=== PATIENT | female | born 1935 | race Caucasian/White ===

== ENCOUNTER 2017-10-22 20:15 | Emergency (ER) | payer MEDICARE, OTHER ==
[~2017-10-22] VITALS: Ht 160 cm; Wt 85.0 kg
[~2017-10-22 20:15] MED LIST: ASPI-611 PO; CEPH500C5 PO; CLAR250T43 PO; DIAZ-351 PO; LISI-600 PO; MECL-111 PO; NITR100C6 PO; OMEP40CA37; PHEN-824 PO; VITA100C22
[2017-10-22 20:44] VITALS: BP 146/81
== END 2017-10-22 23:40 | disposition left against medical advice (07) ==
LOC: ER 20:15
DX: R21 Rash and other nonspecific skin eruption (principal); Z53.21 Procedure and treatment not carried out due to patient leaving prior to being seen by health care provider

== ENCOUNTER 2017-12-04 09:34 | Emergency (ER) | payer MEDICARE, OTHER ==
[~2017-12-04] VITALS: Ht 162.6 cm; Wt 81.0 kg
[2017-12-04 09:38] VITALS: BP 166/87
== END 2017-12-04 10:51 | disposition home or self-care (01) ==
LOC: ER 09:35
DX: M25.531 Pain in right wrist (principal); K21.9 Gastro-esophageal reflux disease without esophagitis; G89.29 Other chronic pain; Z90.49 Acquired absence of other specified parts of digestive tract; Z90.710 Acquired absence of both cervix and uterus; Z98.890 Other specified postprocedural states; Z88.5 Allergy status to narcotic agent; Z88.8 Allergy status to other drugs, medicaments and biological substances; Z79.82 Long term (current) use of aspirin; Z79.899 Other long term (current) drug therapy; X50.0XXA Overexertion from strenuous movement or load, initial encounter; Y93.89 Activity, other specified; Y92.89 Other specified places as the place of occurrence of the external cause; Y99.8 Other external cause status
CPT/HCPCS: 29125; 73110; 99284; A4565

== ENCOUNTER 2017-12-04 11:42 | Inpatient (IN) | payer MEDICARE, OTHER ==
[~2017-12-04] VITALS: Ht 157.5 cm; Wt 76.0 kg
[2017-12-04 12:26] LABS: BASOPHILS % (AUTO) 0.3 % (0-1); EOSINOPHILS % (AUTO) 0 % (0-6); HEMATOCRIT 33.7 % (35.0-45.0); HEMOGLOBIN 11.3 g/dl (12.0-16.0); LYMPHOCYTES # (AUTO) 0.3 X10'3 (1.1-4.8); LYMPHOCYTES % (AUTO) 7.1 % (21-51); MEAN CORPUSCULAR HGB CONC 33.5 % (33.0-36.5); MEAN CORPUSCULAR VOLUME 83.6 FL (78-98); MEAN PLATELET VOLUME 7.6 FL (7.4-10.4); MONOCYTES # (AUTO) 0.3 X10'3 (0-0.9); NEUTROPHILS % (AUTO) 85.6 % (42-75); PLATELET COUNT 113 X10'3 (140-440); RED BLOOD COUNT 4.03 X10'6 (4.20-5.60); RED CELL DISTRIBUTION WIDTH 12.9 % (11.5-14.5); WHITE BLOOD COUNT 4.6 X10'3 (4.5-11.0)
[2017-12-04] MEDS ORDERED: acetaminophen 325mg tablet PO ONE (12:30)
[2017-12-04] MEDS ORDERED: normal saline 1000ml 1,000 ML IV ONE (12:30)
[2017-12-04 12:40] LABS: ALANINE AMINOTRANSFERASE 22 U/L (12-78); ALBUMIN 2.9 G/DL (3.4-5.0); ALBUMIN/GLOBULIN RATIO 0.9 (1.1-1.5); ALKALINE PHOSPHATASE 66 IU/L (46-116); AMYLASE 29 U/L (25-115); ANION GAP 10 (8-16); ASPARTATE AMINO TRANSFERASE 31 U/L (10-37); BILIRUBIN,TOTAL 0.7 MG/DL (0.1-1.0); BLOOD UREA NITROGEN 15 MG/DL (7-18); BUN/CREATININE RATIO 11.7 (6.6-38.0); CALCIUM 8.1 MG/DL (8.5-10.1); CHLORIDE 102 MMOL/L (99-107); CREATININE 1.28 MG/DL (0.40-0.90); GLUCOSE 123 MG/DL (70-104); POTASSIUM 3.3 MMOL/L (3.5-5.1); SODIUM 135 MMOL/L (135-145); TOTAL CARBON DIOXIDE 23.2 MMOL/L (24-32); eGFR 40 ML/MIN
[2017-12-04 13:21] LABS: CLARITY,URINE SLIGHTLY CLOUDY (Clear); COLOR,URINE YELLOW (Yellow); GLUCOSE, URINE NEGATIVE (Neg); KETONES,URINE NEGATIVE (Neg); LEUKOCYTE ESTERASE ,URINE NEGATIVE (Neg); NITRITES, URINE NEGATIVE (Neg); OCCULT BLOOD,URINE MODERATE (Neg); PROTEIN,URINE 30 mg/dl (Neg); UA COLLECTION TYPE STRAIGHT CATH; UROBILINOGEN,URINE 0.2 E.U/dL (0.2-1.0)
[2017-12-04 13:27] LABS: URINE AMPHETAMINE SCREEN NEGATIVE (Neg); URINE BARBITUATE SCREEN NEGATIVE (Neg); URINE BENZODIAZEPINES SCREEN NEGATIVE (Neg); URINE CANNABINOID SCREEN NEGATIVE (Neg); URINE COCAINE SCREEN NEGATIVE (Neg); URINE METHADONE SCREEN NEGATIVE (Neg); URINE OPIATE SCREEN NEGATIVE (Neg); URINE PHENCYCLIDINE SCREEN NEGATIVE (Neg)
[2017-12-04 13:33] LABS: COARSE GRANULAR CAST 0-3 /LPF (NEGATIVE); HYALINE CASTS 0-3 /LPF (NEGATIVE); SQUAMOUS EPITHELIAL CELL,UR FEW /LPF (FEW)
[2017-12-04 13:35] LABS: AMORPHOUS URATES 2+; BACTERIA,URINE FEW /HPF (Neg); RBC,URINE 0-2 /HPF (0-2); WBC,URINE 0-4 /HPF (0-4)
[2017-12-04 13:36] LABS: MUCUS STRANDS MODERATE /LPF (Neg)
[2017-12-04] MEDS ORDERED: CefTRIAXone/D5W-Rocephin 1gm 50 ML IV ONE (14:10)
[2017-12-04 14:35] LABS: CREATINE KINASE 197 U/L (26-192)
[2017-12-04] MEDS ORDERED: acyclovir inj 900 MG in normal saline 250ml IV soln 232 ML IV STA (14:50)
[2017-12-04] MEDS ORDERED: normal saline 1000ML IV soln IVB ONE (15:00)
[2017-12-04 15:36] LABS: APPEARANCE,CSF CLEAR; CSF SUPERNATANT COLOR COLORLESS; CSF VOLUME 6 ML; TUBE# COUNTED 1
[2017-12-04 15:38] LABS: APPEARANCE,CSF CLEAR; CSF RBC 42 /CU MM (0); CSF SUPERNATANT COLOR COLORLESS; CSF VOLUME 6 ML; CSF WBC CT 4 /CU MM (0-5); TUBE# COUNTED 4
[2017-12-04 15:39] LABS: CSF RBC 2 /CU MM (0); CSF WBC CT 2 /CU MM (0-5)
[2017-12-04 16:47] LABS: GLUCOSE,CSF 73 MG/DL (40-75); TOTAL PROTEIN,CSF 30 MG/DL (30-60)
[2017-12-04] MEDS ORDERED: acetaminophen 325mg tablet PO PRN ×2 (16:55)
[2017-12-04] MEDS ORDERED: ondansetron/PF 4mg/2ml inj IV PRN (16:55)
[2017-12-04] MEDS ORDERED: magnesium hydroxide 30ml (MOM) UD suspension PO PRN (16:55)
[2017-12-04] MEDS ORDERED: mag hydrox/Alum hydrox/simeth 30ml oral suspension PO PRN (16:55)
[2017-12-04] MEDS: lisinopril 10 MG tablet PO SCH (17:00)
[2017-12-04] MEDS ORDERED: magnesium Cl slow-release 64mg tablet PO PRN (17:00)
[2017-12-04] MEDS ORDERED: potassium Cl 20 mEq SR tablet PO PRN (17:00)
[2017-12-04] MEDS ORDERED: magnesium 2GM in 50ml NS 50 ML IV PRN (17:00)
[2017-12-04] MEDS ORDERED: potassium Cl 40MEQ/NS 500ml 500 ML IV PRN ×2 (17:00)
[2017-12-04] MEDS: HYDROcodone/acetaminophen 5mg/325mg tablet PO PRN (20:42)
[2017-12-04 22:00] VITALS: BP 139/65
[2017-12-05] MEDS: HYDROcodone/acetaminophen 5mg/325mg tablet PO PRN ×4 (02:20→21:48)
[2017-12-05 03:00] VITALS: BP 173/78
[2017-12-05 06:00] VITALS: BP 149/66
[2017-12-05 06:03] LABS: BASOPHILS % (AUTO) 0 % (0-1); EOSINOPHILS % (AUTO) 0.8 % (0-6); HEMATOCRIT 31.3 % (35.0-45.0); HEMOGLOBIN 10.5 g/dl (12.0-16.0); LYMPHOCYTES # (AUTO) 0.7 X10'3 (1.1-4.8); LYMPHOCYTES % (AUTO) 17.1 % (21-51); MEAN CORPUSCULAR HEMOGLOBIN 28.2 PG (27.0-31.0); MEAN CORPUSCULAR HGB CONC 33.5 % (33.0-36.5); MEAN CORPUSCULAR VOLUME 84.1 FL (78-98); MEAN PLATELET VOLUME 8.2 FL (7.4-10.4); MONOCYTES # (AUTO) 0.6 X10'3 (0-0.9); NEUTROPHILS # (AUTO) 2.6 X10'3 (1.8-7.7); NEUTROPHILS % (AUTO) 67.1 % (42-75); PLATELET COUNT 94 X10'3 (140-440); RED BLOOD COUNT 3.72 X10'6 (4.20-5.60); RED CELL DISTRIBUTION WIDTH 13.1 % (11.5-14.5); WHITE BLOOD COUNT 3.9 X10'3 (4.5-11.0)
[2017-12-05 06:13] LABS: ALBUMIN 2.4 G/DL (3.4-5.0); ANION GAP 9 (8-16); BLOOD UREA NITROGEN 13 MG/DL (7-18); BUN/CREATININE RATIO 12.7 (6.6-38.0); CALCIUM 8.5 MG/DL (8.5-10.1); CHLORIDE 106 MMOL/L (99-107); CREATININE 1.02 MG/DL (0.40-0.90); GLUCOSE 101 MG/DL (70-104); MAGNESIUM 1.8 MG/DL (1.5-2.4); POTASSIUM 3.4 MMOL/L (3.5-5.1); SODIUM 139 MMOL/L (135-145); TOTAL CARBON DIOXIDE 24.1 MMOL/L (24-32); eGFR 52 ML/MIN
[2017-12-05 07:08] LABS: LARGE PLATELETS FEW; PLATELET ESTIMATE DECREASED
[2017-12-05] MEDS: aspirin 81mg tablet.DR PO SCH (07:27)
[2017-12-05] MEDS: lisinopril 10 MG tablet PO SCH (07:27)
[2017-12-05] MEDS: potassium Cl 20 mEq SR tablet PO PRN ×3 (07:28→17:41)
[2017-12-05] MEDS: CefTRIAXone/D5W-Rocephin 1gm 50 ML IV SCH (07:30)
[2017-12-05] MEDS ORDERED: petrolatum, white 71gm jar TP PRN (10:00)
[2017-12-05 10:03] LABS: C-REACTIVE PROTEIN 15.63 MG/DL (0.0-0.5)
[2017-12-05] MEDS ORDERED: lisinopril 10 MG tablet PO SCH (10:10)
[2017-12-05 11:00] VITALS: BP 114/53
[2017-12-05 15:00] VITALS: BP 116/65
[2017-12-05 18:00] VITALS: BP 117/51
[2017-12-05] MEDS: lactobacillus rhamnosus 10,000 MMU CELLS/CAPSULE PO SCH (19:53)
[2017-12-05 22:00] VITALS: BP 136/62
[2017-12-06] VITALS (8 sets, daily range): BP systolic 105–149; BP diastolic 43–70
[2017-12-06 05:46] LABS: BASOPHILS % (AUTO) 0.3 % (0-1); EOSINOPHILS # (AUTO) 0.1 X10'3 (0-0.9); EOSINOPHILS % (AUTO) 2.2 % (0-6); HEMATOCRIT 30.4 % (35.0-45.0); HEMOGLOBIN 10.1 g/dl (12.0-16.0); MEAN CORPUSCULAR HEMOGLOBIN 27.6 PG (27.0-31.0); MEAN CORPUSCULAR HGB CONC 33.1 % (33.0-36.5); MEAN CORPUSCULAR VOLUME 83.3 FL (78-98); MEAN PLATELET VOLUME 8.5 FL (7.4-10.4); MONOCYTES # (AUTO) 0.7 X10'3 (0-0.9); MONOCYTES % (AUTO) 14.5 % (2-12); NEUTROPHILS # (AUTO) 2.8 X10'3 (1.8-7.7); PLATELET COUNT 106 X10'3 (140-440); RED BLOOD COUNT 3.65 X10'6 (4.20-5.60); RED CELL DISTRIBUTION WIDTH 13.1 % (11.5-14.5); WHITE BLOOD COUNT 4.5 X10'3 (4.5-11.0)
[2017-12-06 05:59] LABS: ALBUMIN 2.2 G/DL (3.4-5.0); ANION GAP 10 (8-16); BLOOD UREA NITROGEN 15 MG/DL (7-18); BUN/CREATININE RATIO 15.5 (6.6-38.0); CALCIUM 8.5 MG/DL (8.5-10.1); CHLORIDE 105 MMOL/L (99-107); CREATININE 0.97 MG/DL (0.40-0.90); GLUCOSE 100 MG/DL (70-104); MAGNESIUM 1.8 MG/DL (1.5-2.4); POTASSIUM 4.2 MMOL/L (3.5-5.1); SODIUM 140 MMOL/L (135-145); TOTAL CARBON DIOXIDE 24.7 MMOL/L (24-32); eGFR 55 ML/MIN
[2017-12-06] MEDS: lactobacillus rhamnosus 10,000 MMU CELLS/CAPSULE PO SCH ×2 (07:36→21:21)
[2017-12-06] MEDS: aspirin 81mg tablet.DR PO SCH (07:36)
[2017-12-06] MEDS: lisinopril 20mg tablet PO SCH (07:37)
[2017-12-06] MEDS: CefTRIAXone/D5W-Rocephin 1gm 50 ML IV SCH (07:42)
[2017-12-06] MEDS: HYDROcodone/acetaminophen 5mg/325mg tablet PO PRN (07:53)
[2017-12-06] MEDS: celeCOXIB 100mg capsule PO SCH (09:23)
[2017-12-06] MEDS ORDERED: iohexol 300mg/ml 100ml inj. ONE (13:39)
[2017-12-06] MEDS ORDERED: clindamycin 600mg/D5W 50ml 50 ML IV SCH (14:30)
[2017-12-06] MEDS ORDERED: levoFLOXACIN-Levaquin 500mg/D5 100 ML IV SCH (14:30)
[2017-12-06] MEDS ORDERED: vancomycin/NS 1 GM ADD-VANTAGE 250 ML IV SCH (18:00)
[2017-12-07] VITALS (8 sets, daily range): BP systolic 115–145; BP diastolic 41–84
[2017-12-07 06:21] LABS: BASOPHILS % (AUTO) 0.2 % (0-1); EOSINOPHILS # (AUTO) 0.2 X10'3 (0-0.9); EOSINOPHILS % (AUTO) 4.7 % (0-6); HEMATOCRIT 31.1 % (35.0-45.0); HEMOGLOBIN 10.6 g/dl (12.0-16.0); LYMPHOCYTES # (AUTO) 0.6 X10'3 (1.1-4.8); LYMPHOCYTES % (AUTO) 15.4 % (21-51); MEAN CORPUSCULAR HEMOGLOBIN 28.1 PG (27.0-31.0); MEAN CORPUSCULAR HGB CONC 34.1 % (33.0-36.5); MEAN CORPUSCULAR VOLUME 82.6 FL (78-98); MEAN PLATELET VOLUME 8.8 FL (7.4-10.4); MONOCYTES # (AUTO) 0.4 X10'3 (0-0.9); MONOCYTES % (AUTO) 10.2 % (2-12); NEUTROPHILS # (AUTO) 2.8 X10'3 (1.8-7.7); NEUTROPHILS % (AUTO) 69.5 % (42-75); PLATELET COUNT 141 X10'3 (140-440); RED BLOOD COUNT 3.76 X10'6 (4.20-5.60); RED CELL DISTRIBUTION WIDTH 13.2 % (11.5-14.5)
[2017-12-07 06:39] LABS: ALBUMIN 2.2 G/DL (3.4-5.0); ANION GAP 7 (8-16); BLOOD UREA NITROGEN 15 MG/DL (7-18); BUN/CREATININE RATIO 16.5 (6.6-38.0); C-REACTIVE PROTEIN 14.61 MG/DL (0.0-0.5); CALCIUM 8.9 MG/DL (8.5-10.1); CHLORIDE 107 MMOL/L (99-107); CREATININE 0.91 MG/DL (0.40-0.90); GLUCOSE 96 MG/DL (70-104); POTASSIUM 4.1 MMOL/L (3.5-5.1); SODIUM 140 MMOL/L (135-145); TOTAL CARBON DIOXIDE 26.1 MMOL/L (24-32); eGFR 59 ML/MIN
[2017-12-07] MEDS: lisinopril 20mg tablet PO SCH (09:00)
[2017-12-07] MEDS: aspirin 81mg tablet.DR PO SCH (09:00)
[2017-12-07] MEDS: lactobacillus rhamnosus 10,000 MMU CELLS/CAPSULE PO SCH ×2 (09:00→19:00)
[2017-12-07] MEDS: celeCOXIB 100mg capsule PO SCH (09:00)
[2017-12-07] MEDS ORDERED: LEVO125T PO (11:51)
[2017-12-07] MEDS ORDERED: vancomycin/NS 1 GM ADD-VANTAGE 250 ML IV SCH (18:00)
[2017-12-07 19:29] LABS: HSV 1 PCR Negative (Negative); HSV 2 PCR Negative (Negative)
[2017-12-08 02:00] VITALS: BP 163/73
[2017-12-08 05:38] LABS: BASOPHILS % (AUTO) 0.6 % (0-1); EOSINOPHILS # (AUTO) 0.3 X10'3 (0-0.9); EOSINOPHILS % (AUTO) 4.7 % (0-6); HEMATOCRIT 31.9 % (35.0-45.0); HEMOGLOBIN 10.6 g/dl (12.0-16.0); LYMPHOCYTES # (AUTO) 0.9 X10'3 (1.1-4.8); LYMPHOCYTES % (AUTO) 16.7 % (21-51); MEAN CORPUSCULAR HEMOGLOBIN 27.4 PG (27.0-31.0); MEAN CORPUSCULAR HGB CONC 33.1 % (33.0-36.5); MEAN CORPUSCULAR VOLUME 82.8 FL (78-98); MONOCYTES # (AUTO) 0.5 X10'3 (0-0.9); MONOCYTES % (AUTO) 8.5 % (2-12); NEUTROPHILS # (AUTO) 3.8 X10'3 (1.8-7.7); NEUTROPHILS % (AUTO) 69.5 % (42-75); PLATELET COUNT 222 X10'3 (140-440); RED BLOOD COUNT 3.85 X10'6 (4.20-5.60); RED CELL DISTRIBUTION WIDTH 13.2 % (11.5-14.5); WHITE BLOOD COUNT 5.5 X10'3 (4.5-11.0)
[2017-12-08 05:51] LABS: ALBUMIN 2.2 G/DL (3.4-5.0); ANION GAP 7 (8-16); BLOOD UREA NITROGEN 17 MG/DL (7-18); BUN/CREATININE RATIO 20.2 (6.6-38.0); CHLORIDE 108 MMOL/L (99-107); CREATININE 0.84 MG/DL (0.40-0.90); GLUCOSE 99 MG/DL (70-104); MAGNESIUM 2.1 MG/DL (1.5-2.4); POTASSIUM 4.2 MMOL/L (3.5-5.1); SODIUM 142 MMOL/L (135-145); TOTAL CARBON DIOXIDE 27.2 MMOL/L (24-32); eGFR 65 ML/MIN
[2017-12-08 06:00] VITALS: BP 163/83
[2017-12-08] MEDS: lactobacillus rhamnosus 10,000 MMU CELLS/CAPSULE PO SCH (08:49)
[2017-12-08] MEDS: aspirin 81mg tablet.DR PO SCH (08:49)
[2017-12-08] MEDS: celeCOXIB 100mg capsule PO SCH (08:49)
[2017-12-08] MEDS: lisinopril 20mg tablet PO SCH (08:49)
[2017-12-08 11:00] VITALS: BP 137/70
[2017-12-08 13:32] LABS: CRYPTOCOCCUS ANTIGEN, CSF Negative (Negative)
[2017-12-09] MEDS ORDERED: VANCOMYCIN LEVEL IV NR (17:30)
== END 2017-12-08 15:20 | DRG 871 ==
LOC: ER 11:42 → ED HOLD 16:51 → PCU 3S 21:25
PROVIDERS: ADMIT Family Medicine; ATTEND Internal Medicine
PROC: 009U3ZZ Drainage of Spinal Canal, Percutaneous Approach (ICD-10-PCS; 2017-12-04)
PROC: BP2J1ZZ Computerized Tomography (CT Scan) of Right Forearm using Low Osmolar Contrast (ICD-10-PCS; principal; 2017-12-06)
DX: A41.9 Sepsis, unspecified organism (principal); G93.40 Encephalopathy, unspecified; E44.0 Moderate protein-calorie malnutrition; N18.3 Chronic kidney disease, stage 3 (moderate); L03.113 Cellulitis of right upper limb; I12.9 Hypertensive chronic kidney disease with stage 1 through stage 4 chronic kidney disease, or unspecified chronic kidney disease; E87.6 Hypokalemia; G89.29 Other chronic pain; E03.9 Hypothyroidism, unspecified; K21.9 Gastro-esophageal reflux disease without esophagitis; Z90.710 Acquired absence of both cervix and uterus; Z90.49 Acquired absence of other specified parts of digestive tract; Z88.8 Allergy status to other drugs, medicaments and biological substances; Z68.30 Body mass index [BMI] 30.0-30.9, adult
CPT/HCPCS: 36415; 36569; 62270; 70450; 71045; 73110; 73201; 73701; 76536; 76937; 80048; 80053; 80305; 81001; 82150; 82550; 82945; 83605; 83735; 84145; 84157; 84439; 84443; 84550; 85025; 85651; 86140; 87015; 87040; 87070; 87210; 87502; 87503; 87529; 87899; 89051; 93005; 95816; 96365; 96366; 96368; 99285; A4333; A4353; A6257; A6449; J0133; J0696; J1956; J3370; J3490; J7030; Q9967

== ENCOUNTER 2018-06-18 08:15 | Emergency (ER) | payer MEDICARE, OTHER ==
[~2018-06-18] VITALS: Ht 165.1 cm; Wt 80.0 kg
[~2018-06-18 08:15] MED LIST changes: -CEPH500C5 PO; -CLAR250T43 PO; +LEVO125T PO; -NITR100C6 PO; -PHEN-824 PO; -VITA100C22
[2018-06-18] MEDS ORDERED: ondansetron 4mg rapidly disintigrating tab PO ONE (08:40)
[2018-06-18] MEDS ORDERED: acetaminophen 325mg tablet PO ONE (08:40)
[2018-06-18 08:47] LABS: BASOPHILS % (AUTO) 0.1 % (0-1); EOSINOPHILS # (AUTO) 0.1 X10'3 (0-0.9); HEMATOCRIT 38.2 % (35.0-45.0); HEMOGLOBIN 12.4 g/dl (12.0-16.0); LYMPHOCYTES # (AUTO) 0.8 X10'3 (1.1-4.8); LYMPHOCYTES % (AUTO) 10.8 % (21-51); MEAN CORPUSCULAR HEMOGLOBIN 27.5 PG (27.0-31.0); MEAN CORPUSCULAR HGB CONC 32.5 % (33.0-36.5); MEAN CORPUSCULAR VOLUME 84.7 FL (78-98); MEAN PLATELET VOLUME 7.2 FL (7.4-10.4); MONOCYTES # (AUTO) 0.3 X10'3 (0-0.9); MONOCYTES % (AUTO) 4.5 % (2-12); NEUTROPHILS # (AUTO) 5.8 X10'3 (1.8-7.7); NEUTROPHILS % (AUTO) 82.6 % (42-75); PLATELET COUNT 221 X10'3 (140-440); RED BLOOD COUNT 4.51 X10'6 (4.20-5.60); RED CELL DISTRIBUTION WIDTH 14.4 % (11.5-14.5)
[2018-06-18 09:03] LABS: ALANINE AMINOTRANSFERASE 18 U/L (12-78); ALBUMIN 3.5 G/DL (3.4-5.0); ALBUMIN/GLOBULIN RATIO 1.1 (1.1-1.5); ALKALINE PHOSPHATASE 94 IU/L (46-116); ANION GAP 7 (8-16); ASPARTATE AMINO TRANSFERASE 15 U/L (10-37); BILIRUBIN,TOTAL 0.6 MG/DL (0.1-1.0); BLOOD UREA NITROGEN 12 MG/DL (7-18); CALCIUM 9.1 MG/DL (8.5-10.1); CHLORIDE 105 MMOL/L (99-107); CREATININE 1.09 MG/DL (0.40-0.90); GLUCOSE 114 MG/DL (70-104); POTASSIUM 4.1 MMOL/L (3.5-5.1); SODIUM 140 MMOL/L (135-145); TOTAL CARBON DIOXIDE 27.8 MMOL/L (24-32); TOTAL PROTEIN 6.8 G/DL (6.4-8.2); eGFR 48 ML/MIN
[2018-06-18 09:13] LABS: PROTHROMBIN TIME 9.7 SECONDS (9.0-12.0)
[2018-06-18] MEDS ORDERED: ONDA4TAB9 SL (09:34)
[2018-06-18 09:47] LABS: CLARITY,URINE CLEAR (Clear); COLOR,URINE YELLOW (Yellow); GLUCOSE, URINE NEGATIVE (Neg); KETONES,URINE NEGATIVE (Neg); LEUKOCYTE ESTERASE ,URINE NEGATIVE (Neg); NITRITES, URINE NEGATIVE (Neg); OCCULT BLOOD,URINE NEGATIVE (Neg); PROTEIN,URINE NEGATIVE (Neg); UROBILINOGEN,URINE 0.2 E.U/dL (0.2-1.0)
[2018-06-18 09:53] LABS: UA COLLECTION TYPE CLN CATCH MIDSTREAM
[2018-06-18 10:05] VITALS: BP 144/73
== END 2018-06-18 09:20 | disposition home or self-care (01) ==
LOC: ER 08:15
DX: B34.9 Viral infection, unspecified (principal); K21.9 Gastro-esophageal reflux disease without esophagitis; G89.29 Other chronic pain; Z90.49 Acquired absence of other specified parts of digestive tract; Z90.710 Acquired absence of both cervix and uterus; Z98.890 Other specified postprocedural states; Z88.5 Allergy status to narcotic agent; Z88.8 Allergy status to other drugs, medicaments and biological substances; Z79.82 Long term (current) use of aspirin; Z79.899 Other long term (current) drug therapy
CPT/HCPCS: 36415; 80053; 81003; 85025; 85610; 99283

== ENCOUNTER 2018-07-02 08:29 | Emergency (ER) | payer MEDICARE, OTHER ==
[~2018-07-02] VITALS: Ht 165.1 cm; Wt 80.2 kg
[2018-07-02] MEDS ORDERED: normal saline 1000ML IV soln IV ONE (08:40)
[2018-07-02 09:07] LABS: BASOPHILS % (AUTO) 0.5 % (0-1); EOSINOPHILS # (AUTO) 0.2 X10'3 (0-0.9); EOSINOPHILS % (AUTO) 3.6 % (0-6); HEMATOCRIT 38.5 % (35.0-45.0); HEMOGLOBIN 12.6 g/dl (12.0-16.0); LYMPHOCYTES # (AUTO) 1.1 X10'3 (1.1-4.8); MEAN CORPUSCULAR HEMOGLOBIN 27.5 PG (27.0-31.0); MEAN CORPUSCULAR HGB CONC 32.8 % (33.0-36.5); MEAN CORPUSCULAR VOLUME 83.9 FL (78-98); MEAN PLATELET VOLUME 7.2 FL (7.4-10.4); MONOCYTES # (AUTO) 0.5 X10'3 (0-0.9); MONOCYTES % (AUTO) 8.5 % (2-12); NEUTROPHILS # (AUTO) 4.1 X10'3 (1.8-7.7); NEUTROPHILS % (AUTO) 68.4 % (42-75); PLATELET COUNT 258 X10'3 (140-440); RED BLOOD COUNT 4.59 X10'6 (4.20-5.60); RED CELL DISTRIBUTION WIDTH 14.1 % (11.5-14.5); WHITE BLOOD COUNT 6.1 X10'3 (4.5-11.0)
[2018-07-02 09:19] LABS: ALANINE AMINOTRANSFERASE 18 U/L (12-78); ALBUMIN 3.6 G/DL (3.4-5.0); ALBUMIN/GLOBULIN RATIO 1.1 (1.1-1.5); ALKALINE PHOSPHATASE 97 IU/L (46-116); ANION GAP 8 (8-16); ASPARTATE AMINO TRANSFERASE 17 U/L (10-37); BILIRUBIN,TOTAL 0.5 MG/DL (0.1-1.0); BLOOD UREA NITROGEN 8 MG/DL (7-18); BUN/CREATININE RATIO 5.7 (6.6-38.0); CALCIUM 9.2 MG/DL (8.5-10.1); CHLORIDE 104 MMOL/L (99-107); CREATININE 1.41 MG/DL (0.40-0.90); GLUCOSE 157 MG/DL (70-104); SODIUM 139 MMOL/L (135-145); TOTAL CARBON DIOXIDE 26.8 MMOL/L (24-32); eGFR 36 ML/MIN
[2018-07-02] MEDS ORDERED: GUAI-647 PO (09:36)
[2018-07-02 09:48] VITALS: BP 127/65
== END 2018-07-02 09:50 | disposition home or self-care (01) ==
LOC: ER 08:30
DX: B34.9 Viral infection, unspecified (principal); K21.9 Gastro-esophageal reflux disease without esophagitis; G89.29 Other chronic pain; Z90.49 Acquired absence of other specified parts of digestive tract; Z90.710 Acquired absence of both cervix and uterus; Z98.890 Other specified postprocedural states; Z88.5 Allergy status to narcotic agent; Z88.6 Allergy status to analgesic agent; Z79.82 Long term (current) use of aspirin
CPT/HCPCS: 36415; 71045; 80053; 83880; 84484; 85025; 87502; 87503; 93005; 99284; J7030

== ENCOUNTER 2018-08-06 10:36 | Emergency (ER) | payer MEDICARE, OTHER ==
[~2018-08-06] VITALS: Ht 165.1 cm; Wt 80.1 kg
[2018-08-06 10:52] VITALS: BP 143/75
[2018-08-06 13:19] LABS: CLARITY,URINE CLEAR (Clear); COLOR,URINE STRAW (Yellow); GLUCOSE, URINE NEGATIVE (Neg); KETONES,URINE NEGATIVE (Neg); LEUKOCYTE ESTERASE ,URINE SMALL (Neg); NITRITES, URINE NEGATIVE (Neg); OCCULT BLOOD,URINE NEGATIVE (Neg); PROTEIN,URINE NEGATIVE (Neg); UROBILINOGEN,URINE 0.2 E.U/dL (0.2-1.0)
[2018-08-06 13:20] LABS: UA COLLECTION TYPE CLN CATCH MIDSTREAM
[2018-08-06 13:26] LABS: BACTERIA,URINE NONE SEEN /HPF (Neg); RBC,URINE NONE SEEN /HPF (0-2); SQUAMOUS EPITHELIAL CELL,UR FEW /LPF (FEW); WBC,URINE 0-4 /HPF (0-4)
[2018-08-06] MEDS ORDERED: IBUP-1984 PO (13:50)
== END 2018-08-06 13:56 | disposition home or self-care (01) ==
LOC: ER 10:37
DX: M54.5 Low back pain (principal); R10.31 Right lower quadrant pain; G89.29 Other chronic pain; K21.9 Gastro-esophageal reflux disease without esophagitis; Z90.49 Acquired absence of other specified parts of digestive tract; Z90.710 Acquired absence of both cervix and uterus; Z98.890 Other specified postprocedural states; Z88.5 Allergy status to narcotic agent; Z88.8 Allergy status to other drugs, medicaments and biological substances; Z79.82 Long term (current) use of aspirin; Z79.899 Other long term (current) drug therapy
CPT/HCPCS: 81001; 87088; 99283

== ENCOUNTER 2018-11-05 17:56 | Emergency (ER) | payer MEDICARE, OTHER ==
[~2018-11-05] VITALS: Ht 165.1 cm; Wt 83.0 kg
[2018-11-05 18:01] VITALS: BP 145/75
[2018-11-05] MEDS ORDERED: ipratropium/albuterol 3ml nebule NEB ONE (19:35)
[2018-11-05] MEDS ORDERED: BENZ-16 PO (20:25)
[2018-11-05] MEDS ORDERED: AZIT250T PO (20:25)
== END 2018-11-05 22:15 | disposition home or self-care (01) ==
LOC: ER 17:56
DX: J21.9 Acute bronchiolitis, unspecified (principal); R10.9 Unspecified abdominal pain; M54.9 Dorsalgia, unspecified; H92.02 Otalgia, left ear; R59.0 Localized enlarged lymph nodes; K21.9 Gastro-esophageal reflux disease without esophagitis; G89.29 Other chronic pain; Z88.6 Allergy status to analgesic agent; Z88.8 Allergy status to other drugs, medicaments and biological substances; Z79.899 Other long term (current) drug therapy; Z79.82 Long term (current) use of aspirin; Z79.2 Long term (current) use of antibiotics; Z90.49 Acquired absence of other specified parts of digestive tract; Z90.710 Acquired absence of both cervix and uterus; Z98.890 Other specified postprocedural states
CPT/HCPCS: 71045; 87502; 87503; 94640; 94760; 99284

== ENCOUNTER 2019-08-09 14:35 | Emergency (ER) | payer MEDICARE, OTHER ==
[~2019-08-09] VITALS: Ht 165.1 cm; Wt 93.0 kg
[~2019-08-09 14:35] MED LIST changes: +AZIT250T PO; -MECL-111 PO; +MECL-159 PO; +OMEP40CA13; -OMEP40CA37
[2019-08-09 14:38] VITALS: BP 158/77
[2019-08-09] MEDS ORDERED: proparacaine 0.5% ophthalmic drops 15ml EACHEYE ONE (15:20)
[2019-08-09] MEDS ORDERED: erythromycin ophthalmic ointment 1gm tube EACHEYE ONE (15:20)
[2019-08-09] MEDS ORDERED: ERYT1OIN6 EACHEYE (15:34)
== END 2019-08-09 16:05 | disposition home or self-care (01) ==
LOC: ER 14:36
DX: S05.02XA Injury of conjunctiva and corneal abrasion without foreign body, left eye, initial encounter (principal); H11.32 Conjunctival hemorrhage, left eye; K21.9 Gastro-esophageal reflux disease without esophagitis; G89.29 Other chronic pain; Z94.9 Transplanted organ and tissue status, unspecified; Z90.710 Acquired absence of both cervix and uterus; Z98.890 Other specified postprocedural states; Z88.5 Allergy status to narcotic agent; Z79.82 Long term (current) use of aspirin; Z79.899 Other long term (current) drug therapy; X58.XXXA Exposure to other specified factors, initial encounter; Y93.89 Activity, other specified; Y92.89 Other specified places as the place of occurrence of the external cause; Y99.9 Unspecified external cause status
CPT/HCPCS: 99283

== ENCOUNTER 2020-01-30 08:36 | Emergency (ER) | payer BC, OTHER ==
[~2020-01-30] VITALS: Ht 152.4 cm; Wt 80.0 kg
[2020-01-30 08:41] VITALS: BP 168/87
== END 2020-01-30 09:42 | disposition home or self-care (01) ==
LOC: ER 08:37
DX: R04.0 Epistaxis (principal); K21.9 Gastro-esophageal reflux disease without esophagitis; G89.29 Other chronic pain; Z90.49 Acquired absence of other specified parts of digestive tract; Z90.710 Acquired absence of both cervix and uterus; Z98.890 Other specified postprocedural states; Z88.5 Allergy status to narcotic agent; Z88.8 Allergy status to other drugs, medicaments and biological substances; Z79.82 Long term (current) use of aspirin; Z79.2 Long term (current) use of antibiotics; Z79.899 Other long term (current) drug therapy
CPT/HCPCS: 99281; 99284

== ENCOUNTER 2020-05-02 12:17 | Emergency (ER) | payer BC, OTHER ==
--- NOTE | 2020-05-02 13:41 | NUR ---
PT CALLED X3 FOR TRIAGE, NIL. PROVIDER NOTIFIED, NO FURTHER ACTION REQUIRED PER DR LARA
== END 2020-05-02 13:30 | disposition left against medical advice (07) ==
LOC: ER 12:18
DX: R21 Rash and other nonspecific skin eruption (principal); Z53.21 Procedure and treatment not carried out due to patient leaving prior to being seen by health care provider

== ENCOUNTER 2020-10-02 23:24 | Emergency (ER) | payer BC, OTHER ==
[~2020-10-02] VITALS: Ht 165.1 cm; Wt 81.8 kg
[~2020-10-02 23:24] MED LIST changes: -LISI-600 PO; +LISI20TA28 PO
[2020-10-02 23:28] VITALS: BP 188/94
[2020-10-03 00:35] LABS: ALANINE AMINOTRANSFERASE 19 U/L (12-78); ALBUMIN 3.4 G/DL (3.4-5.0); ALBUMIN/GLOBULIN RATIO 1.1 (1.1-1.5); ALKALINE PHOSPHATASE 90 IU/L (46-116); ANION GAP 8 (8-16); ASPARTATE AMINO TRANSFERASE 20 U/L (10-37); BILIRUBIN,TOTAL 0.3 MG/DL (0.1-1.0); BLOOD UREA NITROGEN 17 MG/DL (7-18); BUN/CREATININE RATIO 13.8 (6.6-38.0); CALCIUM 8.9 MG/DL (8.5-10.1); CHLORIDE 107 MMOL/L (99-107); CREATININE 1.23 MG/DL (0.40-0.90); GLUCOSE 125 MG/DL (70-104); POTASSIUM 3.5 MMOL/L (3.5-5.1); SODIUM 140 MMOL/L (135-145); TOTAL CARBON DIOXIDE 25.2 MMOL/L (24-32); TOTAL PROTEIN 6.5 G/DL (6.4-8.2); eGFR 41 ML/MIN
[2020-10-03 00:38] LABS: LIPASE 155 U/L (73-393); TROPONIN I < 0.04 NG/ML (0.0-0.05)
[2020-10-03 00:40] LABS: BASOPHILS % (AUTO) 0.6 % (0-1); EOSINOPHILS # (AUTO) 0.2 X10'3 (0-0.9); EOSINOPHILS % (AUTO) 3.4 % (0-6); HEMATOCRIT 36.2 % (35.0-45.0); LYMPHOCYTES % (AUTO) 34.5 % (21-51); MEAN CORPUSCULAR HEMOGLOBIN 28.4 PG (27.0-31.0); MEAN CORPUSCULAR HGB CONC 33.2 g/dL (33.0-36.5); MEAN CORPUSCULAR VOLUME 85.7 FL (78-98); MEAN PLATELET VOLUME 7.7 FL (7.4-10.4); MONOCYTES # (AUTO) 0.6 X10'3 (0-0.9); MONOCYTES % (AUTO) 10.2 % (2-12); NEUTROPHILS % (AUTO) 51.3 % (42-75); PLATELET COUNT 228 X10'3 (140-440); RED BLOOD COUNT 4.23 X10'6 (4.20-5.60); RED CELL DISTRIBUTION WIDTH 14.3 % (11.5-14.5); WHITE BLOOD COUNT 5.8 X10'3 (4.5-11.0)
[2020-10-03 01:24] LABS: CLARITY,URINE CLEAR (Clear); COLOR,URINE YELLOW (Yellow); GLUCOSE, URINE NEGATIVE (Neg); KETONES,URINE NEGATIVE (Neg); LEUKOCYTE ESTERASE ,URINE NEGATIVE (Neg); NITRITES, URINE NEGATIVE (Neg); OCCULT BLOOD,URINE NEGATIVE (Neg); PROTEIN,URINE NEGATIVE (Neg); UA COLLECTION TYPE CLN CATCH MIDSTREAM; UROBILINOGEN,URINE 0.2 E.U/dL (0.2-1.0)
== END 2020-10-03 01:25 | disposition home or self-care (01) ==
LOC: ER 23:25
DX: R10.31 Right lower quadrant pain (principal); K21.9 Gastro-esophageal reflux disease without esophagitis; G89.29 Other chronic pain; Z90.49 Acquired absence of other specified parts of digestive tract; Z90.710 Acquired absence of both cervix and uterus; Z98.890 Other specified postprocedural states; Z88.5 Allergy status to narcotic agent; Z88.8 Allergy status to other drugs, medicaments and biological substances; Z79.82 Long term (current) use of aspirin; Z79.2 Long term (current) use of antibiotics; Z79.899 Other long term (current) drug therapy
CPT/HCPCS: 36415; 74176; 80053; 81003; 83690; 84484; 85025; 99284

== ENCOUNTER 2021-11-01 12:50 | Emergency (ER) | payer BC, OTHER ==
[~2021-11-01] VITALS: Ht 165.1 cm; Wt 84.1 kg
[~2021-11-01 12:50] MED LIST changes: +LIDOcaine 1% W/epiNEPHrine 1:100,000 20ml vial ONE; -OMEP40CA13; +OMEP40CA21
[2021-11-01] MEDS: tranexamic acid 100mg/ml inj. TP ONE ×2 (13:43→14:20)
[2021-11-01] MEDS ORDERED: ondansetron/PF 4mg/2ml inj IV ONE (14:10)
[2021-11-01] MEDS ORDERED: LIDOcaine 1% W/epiNEPHrine 1:100,000 20ml vial SQ ONE (14:10)
[2021-11-01] MEDS ORDERED: LORazepam 2 mg/ml vial IV ONE (14:10)
[2021-11-01] MEDS ORDERED: ondansetron 4mg rapidly disintigrating tab PO ONE (14:15)
[2021-11-01 14:31] LABS: BASOPHILS % (AUTO) 0.4 % (0-1); EOSINOPHILS # (AUTO) 0.2 X10'3 (0-0.9); EOSINOPHILS % (AUTO) 2.9 % (0-6); HEMATOCRIT 36.2 % (35.0-45.0); HEMOGLOBIN 11.7 g/dl (12.0-16.0); LYMPHOCYTES # (AUTO) 1.4 X10'3 (1.1-4.8); LYMPHOCYTES % (AUTO) 21.6 % (21-51); MEAN CORPUSCULAR HEMOGLOBIN 27.4 PG (27.0-31.0); MEAN CORPUSCULAR HGB CONC 32.3 g/dL (33.0-36.5); MEAN CORPUSCULAR VOLUME 84.9 FL (78-98); MONOCYTES # (AUTO) 0.5 X10'3 (0-0.9); MONOCYTES % (AUTO) 7.6 % (2-12); NEUTROPHILS # (AUTO) 4.3 X10'3 (1.8-7.7); NEUTROPHILS % (AUTO) 67.5 % (42-75); PLATELET COUNT 287 X10'3 (140-440); RED BLOOD COUNT 4.26 X10'6 (4.20-5.60); RED CELL DISTRIBUTION WIDTH 14.3 % (11.5-14.5); WHITE BLOOD COUNT 6.3 X10'3 (4.5-11.0)
[2021-11-01] MEDS ORDERED: AMOX-117 PO (15:03)
[2021-11-01 15:19] VITALS: BP 134/80
== END 2021-11-01 15:21 | disposition home or self-care (01) ==
LOC: ER 12:51
DX: R04.0 Epistaxis (principal); K21.9 Gastro-esophageal reflux disease without esophagitis; G89.29 Other chronic pain; Z90.49 Acquired absence of other specified parts of digestive tract; Z90.710 Acquired absence of both cervix and uterus; Z98.890 Other specified postprocedural states; Z88.5 Allergy status to narcotic agent; Z88.8 Allergy status to other drugs, medicaments and biological substances; Z79.2 Long term (current) use of antibiotics; Z79.899 Other long term (current) drug therapy
CPT/HCPCS: 30901; 36415; 85025; 99284; J2060; J3490

== ENCOUNTER 2021-11-03 12:12 | Emergency (ER) | payer BC, OTHER ==
[~2021-11-03] VITALS: Ht 165.1 cm; Wt 84.1 kg
[~2021-11-03 12:12] MED LIST changes: +AMOX-117 PO; -ASPI-611 PO; -AZIT250T PO; -DIAZ-351 PO; -LIDOcaine 1% W/epiNEPHrine 1:100,000 20ml vial ONE; -LISI20TA28 PO; -MECL-159 PO; -OMEP40CA21
[2021-11-03 12:24] VITALS: BP 141/72
== END 2021-11-03 13:11 | disposition home or self-care (01) ==
LOC: ER 12:13
DX: R04.0 Epistaxis (principal); K21.9 Gastro-esophageal reflux disease without esophagitis; G89.29 Other chronic pain; Z90.49 Acquired absence of other specified parts of digestive tract; Z90.710 Acquired absence of both cervix and uterus; Z98.890 Other specified postprocedural states; Z88.8 Allergy status to other drugs, medicaments and biological substances; Z88.1 Allergy status to other antibiotic agents; Z88.5 Allergy status to narcotic agent; Z79.82 Long term (current) use of aspirin; Z79.2 Long term (current) use of antibiotics; Z79.899 Other long term (current) drug therapy
CPT/HCPCS: 99281

== ENCOUNTER 2021-11-10 14:42 | Emergency (ER) | payer BC, OTHER ==
[~2021-11-10] VITALS: Ht 165.1 cm; Wt 81.8 kg
[~2021-11-10 14:42] MED LIST changes: -AMOX-117 PO
[2021-11-10 15:01] VITALS: BP 114/59
[2021-11-10] MEDS ORDERED: OXYM30SP26 BOTHNARES (15:40)
== END 2021-11-10 15:50 | disposition home or self-care (01) ==
LOC: ER 14:43
DX: R04.0 Epistaxis (principal); K21.9 Gastro-esophageal reflux disease without esophagitis; G89.29 Other chronic pain; Z90.49 Acquired absence of other specified parts of digestive tract; Z90.710 Acquired absence of both cervix and uterus; Z98.890 Other specified postprocedural states; Z88.0 Allergy status to penicillin; Z88.5 Allergy status to narcotic agent; Z88.8 Allergy status to other drugs, medicaments and biological substances; Z79.899 Other long term (current) drug therapy
CPT/HCPCS: 99282; 99284

== ENCOUNTER 2021-11-11 14:49 | Emergency (ER) | payer BC, OTHER ==
[~2021-11-11] VITALS: Ht 165.1 cm; Wt 81.2 kg
[~2021-11-11 14:49] MED LIST changes: +OXYM30SP26 BOTHNARES
[2021-11-11 14:57] VITALS: BP 128/69
== END 2021-11-11 17:35 | disposition left against medical advice (07) ==
LOC: ER 14:50
DX: R04.0 Epistaxis (principal); Z53.21 Procedure and treatment not carried out due to patient leaving prior to being seen by health care provider

== ENCOUNTER 2022-11-15 11:07 | Emergency (ER) | payer BC, OTHER ==
[~2022-11-15] VITALS: Ht 165.1 cm; Wt 61.4 kg
[~2022-11-15 11:07] MED LIST changes: -LEVO125T PO; +LEVO50TA8 PO; +OMEP40CA21 PO; -OXYM30SP26 BOTHNARES
[2022-11-15 11:15] VITALS: BP 193/91
--- NOTE | 2022-11-15 11:30 | NUR ---
PROVIDERS INFORMED THAT PATIENT IS IN [facility] ROOM
--- NOTE | 2022-11-15 11:50 | NUR ---
PA AT BEDSIDE
[2022-11-15] MEDS ORDERED: KEN0.1O TP (11:58)
[2022-11-15] MEDS ORDERED: CEPH-585 PO (11:58)
== END 2022-11-15 12:05 | disposition home or self-care (01) ==
LOC: ER 11:08
DX: L03.114 Cellulitis of left upper limb (principal); G89.29 Other chronic pain; M54.9 Dorsalgia, unspecified; K21.9 Gastro-esophageal reflux disease without esophagitis; Z90.49 Acquired absence of other specified parts of digestive tract; Z88.5 Allergy status to narcotic agent; Z88.1 Allergy status to other antibiotic agents; Z79.899 Other long term (current) drug therapy; Z79.1 Long term (current) use of non-steroidal anti-inflammatories (NSAID); Z79.2 Long term (current) use of antibiotics
CPT/HCPCS: 99283

== ENCOUNTER 2023-10-22 13:48 | Emergency (ER) | payer BC, OTHER ==
[~2023-10-22] VITALS: Ht 165.1 cm; Wt 75.0 kg
[2023-10-22] MEDS: normal saline 1000ml 1,000 ML IV ONE (15:23)
[2023-10-22 15:24] LABS: BASOPHILS % (AUTO) 0.7 % (0-1); EOSINOPHILS # (AUTO) 0.2 X10'3 (0-0.9); EOSINOPHILS % (AUTO) 3.8 % (0-6); HEMATOCRIT 31.9 % (35.0-45.0); HEMOGLOBIN 10.1 g/dl (12.0-16.0); LYMPHOCYTES # (AUTO) 1.2 X10'3 (1.1-4.8); LYMPHOCYTES % (AUTO) 24.7 % (21-51); MEAN CORPUSCULAR HEMOGLOBIN 24.4 PG (27.0-31.0); MEAN CORPUSCULAR HGB CONC 31.6 g/dL (33.0-36.5); MEAN CORPUSCULAR VOLUME 77.2 FL (78-98); MEAN PLATELET VOLUME 7.7 FL (7.4-10.4); MONOCYTES # (AUTO) 0.4 X10'3 (0-0.9); MONOCYTES % (AUTO) 8.4 % (2-12); NEUTROPHILS % (AUTO) 62.4 % (42-75); PLATELET COUNT 264 X10'3 (140-440); RED BLOOD COUNT 4.13 X10'6 (4.20-5.60); RED CELL DISTRIBUTION WIDTH 15.4 % (11.5-14.5); WHITE BLOOD COUNT 4.7 X10'3 (4.5-11.0)
[2023-10-22] MEDS: acetaminophen 1,000mg/100ml IV 100 ML IV SCH (15:27)
[2023-10-22] MEDS: acetaminophen 1,000mg/100ml IV 100 ML IV ONE (15:31)
[2023-10-22 15:37] LABS: ALANINE AMINOTRANSFERASE 17 U/L (12-78); ALBUMIN 3.2 G/DL (3.4-5.0); ALKALINE PHOSPHATASE 63 IU/L (46-116); ANION GAP 11 (8-16); ASPARTATE AMINO TRANSFERASE 20 U/L (10-37); BILIRUBIN,TOTAL 0.4 MG/DL (0.1-1.0); BLOOD UREA NITROGEN 14 MG/DL (7-18); BUN/CREATININE RATIO 12.3 (10.0-20.0); CHLORIDE 110 MMOL/L (99-107); CREATININE 1.14 MG/DL (0.40-0.90); GLUCOSE 118 MG/DL (70-104); POTASSIUM 3.8 MMOL/L (3.5-5.1); SODIUM 145 MMOL/L (135-145); TOTAL CARBON DIOXIDE 24.5 MMOL/L (24-32); TOTAL PROTEIN 6.3 G/DL (6.4-8.2); eCRCL 31 ML/MIN; eGFR 45 ML/MIN
[2023-10-22] MEDS ORDERED: iohexol 300mg/ml 100ml inj. ONE (15:46)
[2023-10-22 18:15] VITALS: BP 128/86
[2023-10-22 19:08] VITALS: PULSE 76; RESP 14; O2SAT 95
[2023-10-22 19:21] LABS: BILIRUBIN,URINE NEGATIVE (Neg); CLARITY,URINE CLEAR (Clear); COLOR,URINE YELLOW (Yellow); GLUCOSE, URINE NEGATIVE (Neg); KETONES,URINE NEGATIVE (Neg); LEUKOCYTE ESTERASE ,URINE NEGATIVE (Neg); NITRITES, URINE NEGATIVE (Neg); OCCULT BLOOD,URINE NEGATIVE (Neg); PH,URINE 6.5 (4.8-8.0); PROTEIN,URINE NEGATIVE (Neg); UROBILINOGEN,URINE 0.2 E.U/dL (0.2-1.0)
[2023-10-22 19:33] LABS: UA COLLECTION TYPE CLN CATCH MIDSTREAM
[2023-10-22] MEDS ORDERED: normal saline 1000ml 1,000 ML IV ONE (19:50)
[2023-10-22] MEDS ORDERED: pantoprazole 40 MG vial IV ONE (19:50)
[2023-10-22] MEDS ORDERED: LORazepam 2 mg/ml vial IV ONE (19:50)
[2023-10-23 00:41] VITALS: TEMP 97.9
== END 2023-10-23 00:43 | disposition home or self-care (01) ==
LOC: ER 13:48
DX: M25.551 Pain in right hip (principal); K21.9 Gastro-esophageal reflux disease without esophagitis; Z88.5 Allergy status to narcotic agent; Z88.8 Allergy status to other drugs, medicaments and biological substances; Z79.899 Other long term (current) drug therapy; Z90.49 Acquired absence of other specified parts of digestive tract; Z90.710 Acquired absence of both cervix and uterus
CPT/HCPCS: 36415; 71045; 74177; 80053; 81003; 83605; 84484; 85025; 87040; 93005; 96374; 99285; J0131; J3490; J7030; Q9967